=== PATIENT | female | born 2000 | race Caucasian/White ===

== ENCOUNTER 2025-03-17 01:34 | Emergency (ER) | payer BC ==
[~2025-03-17] VITALS: Ht 172.7 cm; Wt 69.0 kg
[2025-03-17 01:41] VITALS: O2SAT 99
[2025-03-17 02:25] LABS: CLARITY URINE CLEAR (CLEAR); COLOR URINE YELLOW (YELLOW); GLUCOSE URINE NEGATIVE (NEGATIVE); KETONES URINE NEGATIVE (NEGATIVE); LEUKOCYTE ESTERASE URINE TRACE (NEGATIVE); NITRITE URINE NEGATIVE (NEGATIVE); OCCULT BLOOD URINE TRACE (NEGATIVE); PH URINE 6.5 (4.5-8.0); PROTEIN URINE NEGATIVE (NEGATIVE); SPECIFIC GRAVITY URINE 1.007 (1.005-1.030); UROBILINOGEN URINE 0.2 E.U./dL (0.2-1.0)
[2025-03-17 02:31] LABS: UCG SCREEN NEGATIVE
[2025-03-17 02:32] LABS: UCG KIT EXPIRATION DATE 1-3-27; UCG KIT LOT# 0000958452
[2025-03-17 02:37] LABS: BASOPHILS % 0.2 % (0.0-2.0); EOSINOPHILS % 0.2 % (0.0-5.0); HEMATOCRIT. 41.8 % (36.0-48.0); HEMOGLOBIN. 14.0 g/dL (12.0-16.0); LYMPHOCYTES % 15.4 % (20.0-50.0); MEAN PLATELET VOLUME 9.3 fl (7.4-10.4); MONOCYTES % 4.7 % (2.0-8.0); NEUTROPHILS % 79.5 % (40.0-76.0); PLATELET 304 x1000/uL (130-400); RED BLOOD CELL COUNT 4.72 mill/uL (4.2-5.4); RED CELL DISTRIBUTION WIDTH 13.6 % (11.6-14.6)
[2025-03-17 02:50] LABS: CREATININE 0.8 mg/dL (0.6-1.0); UREA NITROGEN BLOOD 8 mg/dL (9-23)
[2025-03-17] MEDS ORDERED: FAMOTIDINE 20MG TABLET PO ONE (03:00)
[2025-03-17 03:14] LABS: ASPARTATE AMINOTRANSFERASE 14 IU/L (<34); BILIRUBIN DIRECT 0.1 mg/dL (<=3.0); BILIRUBIN TOTAL 0.4 mg/dL (0.1-1.0)
[2025-03-17 03:15] LABS: PROTEIN TOTAL 8.1 g/dL (6.0-8.3)
[2025-03-17] MEDS: SODIUM CHLORIDE 0.9% 1,000 ML IV ONE (03:38)
[2025-03-17] MEDS: ONDANSETRON HCL 4MG/2ML INJ IV ONE (03:44)
[2025-03-17] MEDS: FAMOTIDINE 20MG/2ML VIAL IV ONE (03:44)
[2025-03-17] MEDS: KETOROLAC 15MG/ML VIAL IV ONE (03:44)
[2025-03-17 04:34] LABS: SQUAMOUS EPITHELIAL CELL URINE FEW /lpf (RARE/1+)
[2025-03-17 04:37] LABS: WBC URINE 0-2 /hpf (0-2)
[2025-03-17 04:38] LABS: RBC URINE 0-2 /hpf (0-2)
[2025-03-17 04:39] LABS: BACTERIA URINE TRACE
[2025-03-17 04:42] LABS: HCG SCREEN NEGATIVE
[2025-03-17] MEDS ORDERED: ONDA4TAB50 MT (06:08)
[2025-03-17] MEDS ORDERED: BISM-77 MT (06:08)
[2025-03-17] MEDS ORDERED: NAPR-681 PO (06:08)
[2025-03-17 06:37] VITALS: BP 113/64; PULSE 65; RESP 18; TEMP 37; O2SAT 97
== END 2025-03-17 06:40 | disposition home or self-care (01) ==
LOC: ER 01:43
DX: R10.2 Pelvic and perineal pain (principal); K52.9 Noninfective gastroenteritis and colitis, unspecified; F41.9 Anxiety disorder, unspecified; F32.A Depression, unspecified; Z87.59 Personal history of other complications of pregnancy, childbirth and the puerperium; Z79.899 Other long term (current) drug therapy; Z88.0 Allergy status to penicillin
CPT/HCPCS: 80076; 80048; 81003; 81025; 84703; 83690; 85025; 36415; 74176; 76830; 76856; 96374; 96375; 99285; J1308; J1885; J2405; Z7610 ×2; A4606